=== PATIENT | male | born 1945 | race Caucasian/White ===

== ENCOUNTER 2021-11-04 21:32 | Emergency (ER) | payer MEDICARE, OTHER ==
[2021-11-04 22:51] LABS: CHLORIDE,CL 100 mmol/L (98-107); SODIUM,NA 137 mmol/L (136-145)
[2021-11-04 22:52] LABS: ANION GAP 9.4 mmol/L (5-15)
[2021-11-04 23:20] LABS: PTT,PARTIAL THROMBOPLSTIN TIME 26.7 SEC (20.5-30.9)
[2021-11-04] MEDS ORDERED: Diltiazem 125 MG in Sodium Chloride 0.9% 100 ML IV SCH (23:30)
[2021-11-05 01:02] VITALS: BP 95/74; PULSE 142
== END 2021-11-05 00:10 | disposition short-term general hospital (02) ==
LOC: VM.ED 21:32
DX: I48.91 Unspecified atrial fibrillation (principal); E11.40 Type 2 diabetes mellitus with diabetic neuropathy, unspecified; R77.8 Other specified abnormalities of plasma proteins; E78.00 Pure hypercholesterolemia, unspecified; I10 Essential (primary) hypertension; N40.0 Benign prostatic hyperplasia without lower urinary tract symptoms; Z95.5 Presence of coronary angioplasty implant and graft; Z79.82 Long term (current) use of aspirin; Z79.4 Long term (current) use of insulin; Z79.01 Long term (current) use of anticoagulants; Z79.899 Other long term (current) drug therapy
CPT/HCPCS: 71045; 80053; 82550; 83615; 84484; 85025; 85379; 85610; 85730; 86140; 93005; 93010; 96365; 99284; 99285-25; J3490

== ENCOUNTER 2023-05-02 18:44 | Observation (INO) | payer MEDICARE, OTHER ==
[2023-05-02] MEDS ORDERED: Sodium Chloride 0.9% 10 ML Syringe FLUSH PRN (18:52)
[2023-05-02] MEDS ORDERED: Piperacillin/Tazobactam 3.375 GM in Sodium Chloride 0.9% 100 ML IV ONE (18:55)
[2023-05-02 19:13] LABS: BASOPHILS PERCENT AUTO 0.1 % (0.2-1.2); EOSINOPHILS PERCENT AUTO 0.1 % (0.0-4.0); HEMATOCRIT 32.2 % (40.0-52.0); HEMOGLOBIN 10.7 g/dL (14.0-18.0); IMMATURE GRAN ABSOLUTE AUTO 0.03 x10^3/uL (0.00-0.07); LYMPHOCYTES ABSOLUTE AUTO 0.4 x10^3/uL (1.0-4.8); MEAN CORPUSCULAR HEMOGLOBIN 25.2 pg (26.0-32.0); MEAN CORPUSCULAR HGB CONC 33.2 g/dL (32.0-36.0); MEAN CORPUSCULAR VOLUME 75.8 fL (78.0-93.0); MONOCYTES ABSOLUTE AUTO 0.9 x10^3/uL (0.0-0.8); MONOCYTES PERCENT AUTO 5.6 % (2.0-11.0); NEUTROPHILS ABSOLUTE AUTO 14.8 x10^3/uL (1.8-7.7); NEUTROPHILS PERCENT AUTO 91.6 % (50.0-80.0); PLATELET COUNT,PLT 313 x10^3/uL (130-400); RED BLOOD CELL COUNT 4.25 x10^6/uL (4.5-6.0); WHITE BLOOD CELL COUNT,WBC 16.1 x10^3/uL (4.0-10.0)
[2023-05-02] MEDS ORDERED: Vancomycin 500 MG SDV ONE (19:13)
[2023-05-02 19:22] LABS: LYMPHOCYTES PERCENT AUTO 2.4 % (25.0-50.0)
[2023-05-02 19:28] LABS: INR 1.2 (2.0-3.5); PROTHROMBIN TIME 12.4 SEC (9.5-12.2); PTT,PARTIAL THROMBOPLSTIN TIME 37.7 SEC (23.6-33.6)
[2023-05-02 19:33] LABS: LACTIC ACID 1.3 mmol/L (0.4-2.0)
[2023-05-02 19:35] LABS: A/G RATIO 0.42; ALANINE AMINOTRANSFERASE,ALT 17 U/L (16-63); ALBUMIN 1.9 g/dL (3.4-5.0); ALKALINE PHOSPHATASE 216 U/L (46-116); ASPARTATE AMNIOTRANSFERASE,AST 17 U/L (15-37); BILIRUBIN TOTAL 0.5 mg/dL (0.2-1.0); BLOOD UREA NITROGEN,BUN 22 mg/dL (7-18); CALCIUM 8.4 mg/dL (8.5-10.1); CARBON DIOXIDE,CO2 26 mmol/L (21-32); CHLORIDE,CL 98 mmol/L (98-107); DIGOXIN 0.36 ng/mL (0.90-2.00); GLUCOSE RANDOM 121 mg/dL (70-99); MAGNESIUM 1.8 mg/dL (1.8-2.4); POTASSIUM,K 4.1 mmol/L (3.5-5.1); PROTEIN TOTAL,TP 6.4 g/dL (6.4-8.2); SODIUM,NA 135 mmol/L (136-145)
[2023-05-02 19:38] LABS: ANION GAP 15.1 mmol/L (5-15); ESTIMATED GFR 77 mL/min (>=60)
[2023-05-02] MEDS ORDERED: Acetaminophen 325 MG Tab PO PRN (21:12)
[2023-05-02] MEDS ORDERED: Non-Formulary Medication 1 Each (Albuterol/Ipratropium 4 GM Inhaler) INH PRN (23:22)
[2023-05-02] MEDS ORDERED: Acetaminophen 500 MG Tab PO PRN (23:22)
[2023-05-02] MEDS ORDERED: Loratadine 10 MG Tab PO PRN (23:31)
[2023-05-02] MEDS ORDERED: Erythromycin Base 0.5% Ophth Oint 3.5 GM Tube EYEBOTH SCH (23:45)
[2023-05-02] MEDS ORDERED: atorvaSTATin 40 MG Tab PO SCH (23:45)
[2023-05-02] MEDS ORDERED: Digoxin 125 MCG Tab PO SCH (23:45)
[2023-05-03] MEDS: Apixaban 2.5 MG Tab PO SCH ×2 (00:03→08:09)
[2023-05-03] MEDS: Famotidine 20 MG Tab PO SCH ×2 (00:04→08:09)
[2023-05-03] MEDS: Piperacillin/Tazobactam 3.375 GM in Sodium Chloride 0.9% 100 ML IV SCH ×3 (02:25→13:53)
[2023-05-03 06:34] LABS: APPEARANCE,URINE CLOUDY (CLEAR); BILIRUBIN,URINE NEGATIVE (NEGATIVE); COLOR,URINE YELLOW (YELLOW); GLUCOSE,URINE 500 mg/dL (NEGATIVE); KETONES,URINE NEGATIVE (NEGATIVE); LEUKOCYTE ESTERASE,URINE NEGATIVE (NEGATIVE); NITRITE,URINE NEGATIVE (NEGATIVE); OCCULT BLOOD,URINE TRACE-LYSED (NEGATIVE); PROTEIN,URINE 100 mg/dL (NEGATIVE)
[2023-05-03 06:51] LABS: RBC,URINE 0-5 /HPF (NOT SEEN)
[2023-05-03 06:52] LABS: BACTERIA,URINE MODERATE /HPF (NOT SEEN); MUCUS,URINE FEW /LPF (NOT SEEN); SQUAMOUS EPITHELIAL CELLS,UR NOT SEEN /HPF (NOT SEEN)
[2023-05-03] MEDS ORDERED: INSULIN ASPART 100 UNIT/1 ML SUBCUT SCH (08:00)
[2023-05-03] MEDS: Cholecalciferol (Vitamin D3) 25 MCG Tab PO SCH ×2 (08:09→18:45)
[2023-05-03 08:45] LABS: BASOPHILS PERCENT AUTO 0.1 % (0.2-1.2); EOSINOPHILS PERCENT AUTO 0.2 % (0.0-4.0); HEMATOCRIT 33.4 % (40.0-52.0); IMMATURE GRAN ABSOLUTE AUTO 0.02 x10^3/uL (0.00-0.07); LYMPHOCYTES ABSOLUTE AUTO 1.2 x10^3/uL (1.0-4.8); LYMPHOCYTES PERCENT AUTO 7.3 % (25.0-50.0); MEAN CORPUSCULAR HEMOGLOBIN 24.9 pg (26.0-32.0); MEAN CORPUSCULAR HGB CONC 32.9 g/dL (32.0-36.0); MEAN CORPUSCULAR VOLUME 75.6 fL (78.0-93.0); MONOCYTES PERCENT AUTO 6.1 % (2.0-11.0); NEUTROPHILS ABSOLUTE AUTO 14.4 x10^3/uL (1.8-7.7); NEUTROPHILS PERCENT AUTO 86.2 % (50.0-80.0); PLATELET COUNT,PLT 327 x10^3/uL (130-400); RED BLOOD CELL COUNT 4.42 x10^6/uL (4.5-6.0); WHITE BLOOD CELL COUNT,WBC 16.7 x10^3/uL (4.0-10.0)
[2023-05-03] MEDS ORDERED: prednisoLONE Acetate 1% Ophth Susp 5 ML Bottle EYERT SCH (09:00)
[2023-05-03] MEDS ORDERED: Metoprolol Succinate 25 MG Tab.ER PO SCH (09:00)
[2023-05-03] MEDS ORDERED: prednisoLONE Acetate 1% Ophth Susp 5 ML Bottle**OWN MED EYERT SCH (09:00)
[2023-05-03] MEDS ORDERED: Atropine 1% Ophth Soln 5 ML Bottle EYERT SCH (09:00)
[2023-05-03] MEDS ORDERED: Aspirin 81 MG Tab.EC PO SCH (09:00)
[2023-05-03] MEDS ORDERED: Lisinopril 2.5 MG Tab PO SCH (09:00)
[2023-05-03] MEDS ORDERED: Empagliflozin 25 MG Tab PO SCH (09:00)
[2023-05-03] MEDS ORDERED: Ascorbic Acid 500 MG Tab PO SCH (09:00)
[2023-05-03] MEDS ORDERED: Insulin Glarg,Human.Rec.Analog 100 Unit/ML SUBCUT SCH (09:00)
[2023-05-03 09:16] LABS: LACTIC ACID 1.5 mmol/L (0.4-2.0)
[2023-05-03] MEDS ORDERED: Glucagon,Human Recombinant 1 MG Vial IM PRN (09:48)
[2023-05-03] MEDS ORDERED: 50% Dextrose in Water 50 ML Syringe IVPUSH PRN ×2 (09:48→17:39)
[2023-05-03] MEDS: Insulin Lispro 100 Units/ML 3 ML Vial SUBCUT SCH ×2 (12:53→18:38)
[2023-05-03 17:30] VITALS: BP 141/60; PULSE 68
[2023-05-03] MEDS ORDERED: ERYTHROMYCIN BASE 0.5% EYEBOTH SCH (21:00)
== END 2023-05-03 19:00 | disposition short-term general hospital (02) ==
LOC: VM.ED 18:44 → VM.MS 20:26
PROVIDERS: ADMIT Physician Assistant; ATTEND Physician Assistant
DX: L03.116 Cellulitis of left lower limb (principal); L02.612 Cutaneous abscess of left foot; A41.9 Sepsis, unspecified organism; E11.21 Type 2 diabetes mellitus with diabetic nephropathy; I48.91 Unspecified atrial fibrillation; E78.00 Pure hypercholesterolemia, unspecified; I10 Essential (primary) hypertension; N40.1 Benign prostatic hyperplasia with lower urinary tract symptoms; R33.8 Other retention of urine; R32 Unspecified urinary incontinence; E11.40 Type 2 diabetes mellitus with diabetic neuropathy, unspecified; E66.9 Obesity, unspecified; Z95.5 Presence of coronary angioplasty implant and graft; Z79.82 Long term (current) use of aspirin; Z79.4 Long term (current) use of insulin; Z79.01 Long term (current) use of anticoagulants; Z79.899 Other long term (current) drug therapy
CPT/HCPCS: 36415; 70450; 71045; 80053; 80162; 81001; 82947; 83605; 83735; 84145; 84484; 85025; 85610; 85730; 86140; 87040; 87077; 87186; 96365; 96366; 96367; 96375; 96376; 99285-25; A9270-GY; G0378; J1815-GY; J2543; J3370; J3490; J7050

== ENCOUNTER 2025-05-11 11:49 | Inpatient (IN) | payer MEDICARE, OTHER ==
[2025-05-11 12:19] LABS: BASOPHILS ABSOLUTE AUTO 0.0 x10^3/uL (0.0-0.2); BASOPHILS PERCENT AUTO 0.2 % (0.2-1.2); EOSINOPHILS ABSOLUTE AUTO 0.0 x10^3/uL (0.0-0.5); EOSINOPHILS PERCENT AUTO 0.3 % (0.0-4.0); IMMATURE GRAN ABSOLUTE AUTO 0.05 x10^3/uL (0.00-0.07); IMMATURE GRAN PERCENT AUTO 0.40 % (0.00-0.43); LYMPHOCYTES ABSOLUTE AUTO 1.2 x10^3/uL (1.0-4.8); LYMPHOCYTES PERCENT AUTO 8.9 % (25.0-50.0); MONOCYTES ABSOLUTE AUTO 0.9 x10^3/uL (0.0-0.8); MONOCYTES PERCENT AUTO 7.1 % (2.0-11.0); NEUTROPHILS ABSOLUTE AUTO 11.0 x10^3/uL (1.8-7.7); NEUTROPHILS PERCENT AUTO 83.1 % (50.0-80.0); PLATELET COUNT,PLT 218 x10^3/uL (130-400); RED BLOOD CELL COUNT 6.49 x10^6/uL (4.5-6.0); WHITE BLOOD CELL COUNT,WBC 13.2 x10^3/uL (4.0-10.0)
[2025-05-11 12:53] LABS: A/G RATIO 1.00; ALANINE AMINOTRANSFERASE,ALT 39 U/L (16-63); ASPARTATE AMNIOTRANSFERASE,AST 30 U/L (15-37); BILIRUBIN TOTAL 0.8 mg/dL (0.2-1.0); BLOOD UREA NITROGEN,BUN 56 mg/dL (7-18); CARBON DIOXIDE,CO2 23 mmol/L (21-32); CHLORIDE,CL 101 mmol/L (98-107); CREATININE 1.8 mg/dL (0.70-1.30); ESTIMATED GFR 37 mL/min (>=60); GLUCOSE RANDOM 167 mg/dL (70-99); POTASSIUM,K 3.4 mmol/L (3.5-5.1); PRO B-TYPE NATRIUR PEPT,BNPPRO 1049 pg/mL (<=450); PROTEIN TOTAL,TP 6.8 g/dL (6.4-8.2); SODIUM,NA 136 mmol/L (136-145)
[2025-05-11] MEDS ORDERED: Sodium Chloride 0.9% 10 ML Syringe FLUSH PRN (13:42)
[2025-05-11 15:23] LABS: GLUCOSE,URINE 500 mg/dL (NEGATIVE); OCCULT BLOOD,URINE MODERATE (NEGATIVE)
[2025-05-11 15:24] LABS: APPEARANCE,URINE CLOUDY (CLEAR)
[2025-05-11 15:28] LABS: SQUAMOUS EPITHELIAL CELLS,UR NOT SEEN /HPF (NOT SEEN)
[2025-05-11] MEDS ORDERED: 50% Dextrose in Water 50 ML Syringe IVPUSH PRN (16:22)
[2025-05-11] MEDS: Diltiazem 120 MG Cap.CD PO SCH (21:21)
[2025-05-11] MEDS: ACETAZOLAMIDE 250 MG PO SCH (21:23)
[2025-05-11] MEDS: Erythromycin Base 0.5% Ophth Oint 3.5 GM Tube EYERT SCH (21:27)
[2025-05-12 06:51] LABS: BASOPHILS ABSOLUTE AUTO 0.0 x10^3/uL (0.0-0.2); BASOPHILS PERCENT AUTO 0.1 % (0.2-1.2); EOSINOPHILS ABSOLUTE AUTO 0.1 x10^3/uL (0.0-0.5); EOSINOPHILS PERCENT AUTO 0.3 % (0.0-4.0); IMMATURE GRAN ABSOLUTE AUTO 0.03 x10^3/uL (0.00-0.07); IMMATURE GRAN PERCENT AUTO 0.20 % (0.00-0.43); LYMPHOCYTES ABSOLUTE AUTO 1.3 x10^3/uL (1.0-4.8); LYMPHOCYTES PERCENT AUTO 8.6 % (25.0-50.0); MONOCYTES ABSOLUTE AUTO 1.3 x10^3/uL (0.0-0.8); MONOCYTES PERCENT AUTO 8.7 % (2.0-11.0); NEUTROPHILS ABSOLUTE AUTO 12.1 x10^3/uL (1.8-7.7); NEUTROPHILS PERCENT AUTO 82.1 % (50.0-80.0); PLATELET COUNT,PLT 192 x10^3/uL (130-400); RED BLOOD CELL COUNT 6.38 x10^6/uL (4.5-6.0); WHITE BLOOD CELL COUNT,WBC 14.8 x10^3/uL (4.0-10.0)
[2025-05-12 07:21] LABS: A/G RATIO 0.91; ALANINE AMINOTRANSFERASE,ALT 36.0 U/L (16-63); BILIRUBIN TOTAL 1.0 mg/dL (0.2-1.0); BLOOD UREA NITROGEN,BUN 46.0 mg/dL (7-18); CARBON DIOXIDE,CO2 17.0 mmol/L (21-32); CHLORIDE,CL 104.0 mmol/L (98-107); CREATININE 1.3 mg/dL (0.70-1.30); EST CRCL DRUG DOSING (CG) 46.01 mL/min; GLUCOSE RANDOM 171.0 mg/dL (70-99); POTASSIUM,K 4.9 mmol/L (3.5-5.1); PROTEIN TOTAL,TP 6.7 g/dL (6.4-8.2); SODIUM,NA 133.0 mmol/L (136-145)
[2025-05-12 07:37] LABS: ASPARTATE AMNIOTRANSFERASE,AST 43.0 U/L (15-37); ESTIMATED GFR 55.0 mL/min (>=60)
[2025-05-12] MEDS: Insulin Glarg,Human.Rec.Analog 100 Unit/ML 10 ML Vial SUBCUT SCH (08:39)
[2025-05-12] MEDS: Timolol Maleate 0.5% Ophth Soln 5 ML Bottle EYELF SCH (11:06)
[2025-05-12 11:32] LABS: LACTIC ACID 2.1 mmol/L (0.4-2.0)
[2025-05-12] MEDS: OFLOXACIN 0.3% EYELF SCH (11:46)
[2025-05-13 06:48] LABS: BASOPHILS ABSOLUTE AUTO 0.0 x10^3/uL (0.0-0.2); BASOPHILS PERCENT AUTO 0.3 % (0.2-1.2); EOSINOPHILS ABSOLUTE AUTO 0.2 x10^3/uL (0.0-0.5); EOSINOPHILS PERCENT AUTO 1.3 % (0.0-4.0); IMMATURE GRAN ABSOLUTE AUTO 0.02 x10^3/uL (0.00-0.07); IMMATURE GRAN PERCENT AUTO 0.20 % (0.00-0.43); LYMPHOCYTES ABSOLUTE AUTO 1.4 x10^3/uL (1.0-4.8); LYMPHOCYTES PERCENT AUTO 12.2 % (25.0-50.0); MONOCYTES ABSOLUTE AUTO 1.3 x10^3/uL (0.0-0.8); MONOCYTES PERCENT AUTO 11.5 % (2.0-11.0); NEUTROPHILS ABSOLUTE AUTO 8.6 x10^3/uL (1.8-7.7); NEUTROPHILS PERCENT AUTO 74.5 % (50.0-80.0); PLATELET COUNT,PLT 143 x10^3/uL (130-400); RED BLOOD CELL COUNT 5.78 x10^6/uL (4.5-6.0); WHITE BLOOD CELL COUNT,WBC 11.5 x10^3/uL (4.0-10.0)
[2025-05-13 07:06] LABS: A/G RATIO 0.93; ALANINE AMINOTRANSFERASE,ALT 32.0 U/L (16-63); ASPARTATE AMNIOTRANSFERASE,AST 25.0 U/L (15-37); BILIRUBIN TOTAL 0.5 mg/dL (0.2-1.0); BLOOD UREA NITROGEN,BUN 39.0 mg/dL (7-18); CARBON DIOXIDE,CO2 16.0 mmol/L (21-32); CHLORIDE,CL 111.0 mmol/L (98-107); CREATININE 1.1 mg/dL (0.70-1.30); EST CRCL DRUG DOSING (CG) 54.38 mL/min; ESTIMATED GFR 67.0 mL/min (>=60); GLUCOSE RANDOM 189.0 mg/dL (70-99); POTASSIUM,K 3.9 mmol/L (3.5-5.1); PROTEIN TOTAL,TP 5.8 g/dL (6.4-8.2); SODIUM,NA 136.0 mmol/L (136-145)
[2025-05-13] MEDS ORDERED: ACETAZOLAMIDE 250 MG PO SCH (09:36)
[2025-05-13] MEDS: ACETAZOLAMIDE 250 MG PO SCH (12:38)
[2025-05-14 10:47] VITALS: BP 115/70; PULSE 65
== END 2025-05-14 10:52 | disposition home or self-care (01) | DRG 872 ==
LOC: VM.ED 11:49 → VM.MS 15:07 → OBSVTOIN 05-12 10:12
PROVIDERS: ADMIT Internal Medicine; ATTEND Internal Medicine
PROC: 0T9B70Z Drainage of Bladder with Drainage Device, Via Natural or Artificial Opening (ICD-10-PCS; principal; 2025-05-11)
DX: A41.9 Sepsis, unspecified organism (principal); R55 Syncope and collapse; N39.0 Urinary tract infection, site not specified; I21.4 Non-ST elevation (NSTEMI) myocardial infarction; H54.7 Unspecified visual loss; N40.0 Benign prostatic hyperplasia without lower urinary tract symptoms; E11.40 Type 2 diabetes mellitus with diabetic neuropathy, unspecified; N18.30 Chronic kidney disease, stage 3 unspecified; E11.22 Type 2 diabetes mellitus with diabetic chronic kidney disease; E87.6 Hypokalemia; I48.0 Paroxysmal atrial fibrillation; R53.81 Other malaise; H54.40 Blindness, one eye, unspecified eye; I12.9 Hypertensive chronic kidney disease with stage 1 through stage 4 chronic kidney disease, or unspecified chronic kidney disease; Z85.828 Personal history of other malignant neoplasm of skin; Z95.5 Presence of coronary angioplasty implant and graft; I10 Essential (primary) hypertension; E66.9 Obesity, unspecified; Z79.01 Long term (current) use of anticoagulants; E11.9 Type 2 diabetes mellitus without complications; E78.00 Pure hypercholesterolemia, unspecified; Z98.41 Cataract extraction status, right eye; Z90.6 Acquired absence of other parts of urinary tract; Z98.890 Other specified postprocedural states; Z89.512 Acquired absence of left leg below knee; Z79.82 Long term (current) use of aspirin; Z79.4 Long term (current) use of insulin; Z79.2 Long term (current) use of antibiotics; Z79.899 Other long term (current) drug therapy; Z68.31 Body mass index [BMI] 31.0-31.9, adult
CPT/HCPCS: 36415; 51702; 70450; 71045; 80053; 81001; 82947; 83605; 83735; 83880; 84484; 85025; 87040; 87086; 93010; 96361; 96374; 96376; 97161-GP; 97165-GO; 97535-GO; 99223-GT; 99232-GT; 99233-GT; 99239-GT; 99284; 99285; A9270-GY; G0378; J0692; J0696; J1160; J1815-GY; J7030

== ENCOUNTER 2025-05-15 13:04 | Emergency (ER) | payer MEDICARE, OTHER ==
[2025-05-15] MEDS ORDERED: Sodium Chloride 0.9% 10 ML Syringe FLUSH PRN (13:36)
[2025-05-15 13:43] LABS: BASOPHILS ABSOLUTE AUTO 0.0 x10^3/uL (0.0-0.2); BASOPHILS PERCENT AUTO 0.4 % (0.2-1.2); EOSINOPHILS ABSOLUTE AUTO 0.2 x10^3/uL (0.0-0.5); EOSINOPHILS PERCENT AUTO 1.6 % (0.0-4.0); IMMATURE GRAN ABSOLUTE AUTO 0.03 x10^3/uL (0.00-0.07); IMMATURE GRAN PERCENT AUTO 0.30 % (0.00-0.43); LYMPHOCYTES ABSOLUTE AUTO 1.2 x10^3/uL (1.0-4.8); LYMPHOCYTES PERCENT AUTO 11.6 % (25.0-50.0); MONOCYTES ABSOLUTE AUTO 0.8 x10^3/uL (0.0-0.8); MONOCYTES PERCENT AUTO 7.8 % (2.0-11.0); NEUTROPHILS ABSOLUTE AUTO 8.4 x10^3/uL (1.8-7.7); NEUTROPHILS PERCENT AUTO 78.3 % (50.0-80.0); PLATELET COUNT,PLT 162 x10^3/uL (130-400); RED BLOOD CELL COUNT 5.53 x10^6/uL (4.5-6.0); WHITE BLOOD CELL COUNT,WBC 10.7 x10^3/uL (4.0-10.0)
[2025-05-15 14:02] LABS: A/G RATIO 0.91; ALANINE AMINOTRANSFERASE,ALT 36.0 U/L (16-63); ASPARTATE AMNIOTRANSFERASE,AST 22.0 U/L (15-37); BILIRUBIN TOTAL 0.6 mg/dL (0.2-1.0); BLOOD UREA NITROGEN,BUN 27.0 mg/dL (7-18); CARBON DIOXIDE,CO2 22.0 mmol/L (21-32); CHLORIDE,CL 105.0 mmol/L (98-107); CREATININE 1.3 mg/dL (0.70-1.30); EST CRCL DRUG DOSING (CG) 46.01 mL/min; ESTIMATED GFR 55.0 mL/min (>=60); GLUCOSE RANDOM 129.0 mg/dL (70-99); POTASSIUM,K 3.7 mmol/L (3.5-5.1); PRO B-TYPE NATRIUR PEPT,BNPPRO 1808.0 pg/mL (<=450); PROTEIN TOTAL,TP 6.1 g/dL (6.4-8.2); SODIUM,NA 137.0 mmol/L (136-145)
[2025-05-15 14:05] LABS: INR 1.1 (0.9-1.1)
[2025-05-15 17:26] VITALS: BP 103/61; PULSE 67
== END 2025-05-15 15:45 | disposition short-term general hospital (02) ==
LOC: VM.ED 13:04
DX: I48.19 Other persistent atrial fibrillation (principal); R53.83 Other fatigue; I10 Essential (primary) hypertension; E78.00 Pure hypercholesterolemia, unspecified; E11.21 Type 2 diabetes mellitus with diabetic nephropathy; Z79.4 Long term (current) use of insulin; Z79.51 Long term (current) use of inhaled steroids; Z79.01 Long term (current) use of anticoagulants; Z79.82 Long term (current) use of aspirin; Z79.899 Other long term (current) drug therapy
CPT/HCPCS: 80053; 83735; 83880; 84484; 85025; 85610; 93005; 93010; 99284; 99285

== ENCOUNTER 2025-07-19 10:47 | Emergency (ER) | payer MEDICARE, OTHER ==
[2025-07-19 11:24] LABS: BASOPHILS ABSOLUTE AUTO 0.0 x10^3/uL (0.0-0.2); BASOPHILS PERCENT AUTO 0.1 % (0.2-1.2); EOSINOPHILS ABSOLUTE AUTO 0.1 x10^3/uL (0.0-0.5); EOSINOPHILS PERCENT AUTO 0.4 % (0.0-4.0); IMMATURE GRAN ABSOLUTE AUTO 0.04 x10^3/uL (0.00-0.07); IMMATURE GRAN PERCENT AUTO 0.30 % (0.00-0.43); LYMPHOCYTES ABSOLUTE AUTO 0.9 x10^3/uL (1.0-4.8); LYMPHOCYTES PERCENT AUTO 6.7 % (25.0-50.0); MONOCYTES ABSOLUTE AUTO 1.4 x10^3/uL (0.0-0.8); MONOCYTES PERCENT AUTO 9.9 % (2.0-11.0); NEUTROPHILS ABSOLUTE AUTO 11.4 x10^3/uL (1.8-7.7); NEUTROPHILS PERCENT AUTO 82.6 % (50.0-80.0); PLATELET COUNT,PLT 254 x10^3/uL (130-400); RED BLOOD CELL COUNT 4.54 x10^6/uL (4.5-6.0)
[2025-07-19 11:37] LABS: APPEARANCE,URINE TURBID (CLEAR); GLUCOSE,URINE 500 mg/dL (NEGATIVE); OCCULT BLOOD,URINE LARGE (NEGATIVE)
[2025-07-19 11:41] LABS: WHITE BLOOD CELL COUNT,WBC 13.7 x10^3/uL (4.0-10.0)
[2025-07-19 11:47] LABS: SQUAMOUS EPITHELIAL CELLS,UR NOT SEEN /HPF (NOT SEEN)
[2025-07-19 11:49] VITALS: PULSE 121
[2025-07-19 11:57] LABS: A/G RATIO 0.61; ALANINE AMINOTRANSFERASE,ALT 20 U/L (16-63); ASPARTATE AMNIOTRANSFERASE,AST 17 U/L (15-37); BILIRUBIN TOTAL 0.6 mg/dL (0.2-1.0); BLOOD UREA NITROGEN,BUN 36 mg/dL (7-18); CARBON DIOXIDE,CO2 29 mmol/L (21-32); CHLORIDE,CL 99 mmol/L (98-107); CREATININE 1.7 mg/dL (0.70-1.30); ESTIMATED GFR 40 mL/min (>=60); GLUCOSE RANDOM 233 mg/dL (70-99); POTASSIUM,K 4.3 mmol/L (3.5-5.1); PROTEIN TOTAL,TP 7.1 g/dL (6.4-8.2); SODIUM,NA 138 mmol/L (136-145)
[2025-07-19 13:29] VITALS: BP 143/78
== END 2025-07-19 13:23 | disposition short-term general hospital (02) ==
LOC: VM.ED 10:47
DX: A41.9 Sepsis, unspecified organism (principal); I47.19 Other supraventricular tachycardia; N39.0 Urinary tract infection, site not specified; I10 Essential (primary) hypertension; E78.00 Pure hypercholesterolemia, unspecified; E11.9 Type 2 diabetes mellitus without complications; Z79.4 Long term (current) use of insulin; Z79.899 Other long term (current) drug therapy; Z79.82 Long term (current) use of aspirin
CPT/HCPCS: 36415; 80053; 81001; 83605; 84484; 85025; 87040; 87086; 93005; 96361; 96374; 99285; J0696; J7030; 93010; 99284